=== PATIENT | female | born 1990 | race Two or more races ===

== ENCOUNTER 2025-01-08 19:14 | Emergency (ER) | payer SELFPAY ==
[~2025-01-08] VITALS: Ht 177.8 cm; Wt 73.0 kg
--- NOTE | 2025-01-08 19:28 | ED.PDOC ---
Altered Mental Status HPI Comments 35 y.o female presents to the ED via EMS for an evaluation of a witness syncopal episode today. EMS reports patient was in the front passenger seat of a relative's car, became hot and relative drove home to take her inside. Patient then had a syncopal episode inside the house, relative assisted her down and called 911. Unknown how long patient lost consciousness for and patient reports unable to remember being assisted into the house. Patient states history of syncopal episodes many years ago during that self resolved. EMS reports on scene, patient was hyperventilating, checked BG and it read 65. Patient was given D10 and repeat BG read 200. Patient denies any nausea, vomiting, diarrhea, fever, chills, chest pain or SOB. Time Seen by MD: 19:12 Reviewed Notes: Nurses Notes, Cheesemaker Helper Notes, Medications, Allergies Information Source: Patient, Relative, Emergency Med Personnel Mode of Arrival: EMS Severity: Moderate Timing: Hours Duration: Since onset Prehospital treatment: Accucheck (65), Treatment (D10 ) Quality: Decreased Alertness Associated Signs and Symptoms: Other Past Medical History PAST MEDICAL HISTORY: Denies Surgical History (Other): breast augmentation TOUR AGENT History: No Pertinent TOUR AGENT History Family History Family History: Reviewed,noncontributory to illness Social History Smoker: Non-Smoker Alcohol: Occasionally Drugs: Denies Drug Use Lives In: Home Constitutional: denies: chills, diaphoresis, fatigue, fever, malaise, sweats, weakness, others EENTM: denies: blurred vision, double vision, ear bleeding, ear discharge, ear drainage, ear pain, ear ringing, eye pain, eye redness, hearing loss, mouth pain, mouth swelling, nasal discharge, nose bleeding, nose congestion, nose pain, photophobia, tearing, throat pain, throat swelling, voice changes, others Respiratory: denies: cough, hemoptysis, orthopnea, SOB at rest, shortness of breath, SOB with excertion, stridor, wheezing, others Cardiovascular: reports: syncope; denies: chest pain, dizzy spells, diaphoresis, Dyspnea on exertion, edema, irregular heart beat, left arm pain, lightheadedness, palpitations, PND, others Gastrointestinal: denies: abdomen distended, abdominal pain, blood streaked bowels, constipated, diarrhea, dysphagia, difficulty swallowing, hematemesis, melena, nausea, poor appetite, poor fluid intake, rectal bleeding, rectal pain, vomiting, others Genitourinary: denies: abnormal vagina bleeding, burning, dyspareunia, dysuria, flank pain, frequency, hematuria, incontinence, pain, , vagina discharge, urgency, others Neurological: denies: dizziness, fainting, headache, left sided numbness, left sided weakness, numbness, paresthesia, pre-existing deficit, right sided numbness, right sided weakness, seizure, speech problems, tingling, tremors, weakness, others Musculoskeletal: denies: back pain, gout, joint pain, joint swelling, muscle pain, muscle stiffness, neck pain, others Integumetry: denies: bruises, change in color, change in hair/nails, dryness, laceration, lesions, lumps, rash, wounds, others Allergic/Immunocompromised: denies: Difficulty Healing, Frequent Infections, Hives, Itching, others Hematologic/Lymphatic: denies: anemia, blood clots, easy bleeding, easy bruising, swollen glands, others Endocrine: denies: excessive hunger, excessive sweating, excessive thirst, excessive urination, flushing, intolerance to cold, intolerance to heat, unexplained weight gain, unexplained weight loss, others Psychiatric: denies: anxiety, bipolar disorder, depression, hopeless, panic disorder, schizophrenia, sleepless, suicidal, others All Other Systems: Reviewed and Negative Physical Exam General Appearance: No Apparent Distress HEENT: Normal ENT Inspection, Pharynx Normal, TMs Normal Neck: Full Range of Motion, Non-Tender, Normal, Normal Inspection Respiratory: Chest Non-Tender, Lungs Clear, No Accessory Muscle Use, No Respiratory Distress, Normal Breath Sounds Cardiovascular: No Edema, No JVD, No Murmur, No Gallop, Normal Peripheral Pulses, Regular Rate/Rhythm Breast Exam: Deferred Gastrointestinal: No Organomegaly, Non Tender, No Pulsatile Mass, Normal Bowel Sounds, Soft Genitalia: Deferred Pelvic: Deferred Rectal: Deferred Extremities: No calf tenderness, Normal capillary refill, Normal inspection, Normal range of motion, Non-tender, No pedal edema Musculoskeletal : Apperance: Normal Neurologic: Alert, 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 Was a procedure done?: No Differential Diagnosis (ALOC) Differential Diagnosis: Dehydration, Hypoglycemia, Hypoxemia, Heart Failure, Renal Failure X-Ray, Labs, Meds, VS Vital Signs Date Time Temp Pulse Resp B/P (MAP) Pulse Ox O2 Delivery O2 Flow Rate FiO2 01/08/25 19:30 77 Lab Test 01/08/25 19:30 Range/Units White Blood Count Pending Red Blood Count Pending Hemoglobin Pending Hematocrit Pending Mean Corpuscular Volume Pending Mean Corpuscular Hemoglobin Pending Mean Corpuscular Hemoglobin Concent Pending Red Cell Distribution Width Pending Platelet Count Pending Mean Platelet Volume Pending Neutrophils (%) (Auto) Pending Lymphocytes (%) (Auto) Pending Monocytes (%) (Auto) Pending Basophils (%) (Auto) Pending Neutrophils # (Auto) Pending Lymphocytes # (Auto) Pending Monocytes # (Auto) Pending Sodium Level Pending Potassium Level Pending Chloride Level Pending Carbon Dioxide Level Pending Anion Gap Pending Blood Urea Nitrogen Pending Creatinine Pending Glomerular Filtration Rate Calc Pending BUN/Creatinine Ratio Pending Serum Glucose Pending Calcium Level Pending Troponin I High Sensitivity Pending We ordered blood work as well as imaging studies but the patient has now signed out AMA The patient understands the ramifications of leaving AMA. We did explain to them that they could return to the emergency department's the condition worsens Upon leaving, the patient has no chest pain or shortness for breath Images Reviewed?: Images reviewed and evaluated by me Time of 1ST Reevaluation: 19:22 Reevaluation 1ST: Unchanged Patient Education/Counseling: Diagnosis, Treatment, Prognosis Family Education/Counseling: Diagnosis, Treatment, Prognosis SEPSIS Sepsis Screen Physician Orders Troponin-I Hs (01/08/25 19:22) Complete Blood Count (01/08/25 19:22) Urinalysis (01/08/25 19:22) Head Without Contrast (01/08/25 19:22) Drug Screen (01/08/25 19:22) Cardiology Clinical Consultant (01/08/25 19:22) Pulse Oximetry (01/08/25 19:22) Blood Pressure (01/08/25 19:22) [place] Iv (01/08/25 19:22) Electrocardigram (01/08/25 19:22) Basic Metabolic Panel (01/08/25 19:22) Test, Urine (01/08/25 19:22) Vital Signs Date Time Temp Pulse Resp B/P (MAP) Pulse Ox O2 Delivery O2 Flow Rate FiO2 01/08/25 19:30 77 Laboratory Tests Test 01/08/25 19:30 White Blood Count Pending Departure 1 Departure Time of Disposition: 19:40 Impression: Primary Impression: Episode of syncope Qualified Codes: R55 - Syncope and collapse Disposition: LEFT AGAINST MEDICAL ADVICE Condition: Fair Critical Care Note Critical Care Time?: No Stability Stability form required: No Heart Score Heart Score: Heart Score Response (Comments) Value History N/A 0 EKG N/A 0 Age N/A 0 Risk Factors N/A 0 Troponin N/A 0 Total 0 I personally scribed for CODEY DEY MD ([email or web address]) on 01/08/25 at 19:28. Electronically submitted by Tosha Martinez ([facility] I personally scribed for CODEY DEY MD ([email or web address]) on 01/08/25 at 19:30. Electronically submitted by Tosha Martinez ([facility] CODEY DEY MD Jan 08, 2025 19:28
[2025-01-08 19:41] LABS: Hematocrit 39.5 % (36.0-46.0); Hemoglobin 13.0 g/dL (12.2-16.2); Mean Corpuscular Hemoglobin 29.2 pg (28.0-32.0); Mean Corpuscular Volume 89.1 fL (80.0-100.0); Nucleated Red Blood Cells % 0.1 %
[2025-01-08 19:55] LABS: Potassium 3.6 mmol/L (3.5-5.1); Sodium 142 mmol/L (136-145)
[2025-01-08 19:56] LABS: Anion Gap 7 (5-15); Carbon Dioxide 25 mmol/L (20-31)
[2025-01-08 19:57] LABS: Calcium 9.2 mg/dL (8.7-10.4); Chloride 110 mmol/L (98-107)
[2025-01-08 20:01] LABS: Glucose 85 mg/dL (74-106)
[2025-01-08 20:02] LABS: BUN/Creatinine Ratio 16.4 (10.0-20.0); Blood Urea Nitrogen 12 mg/dL (9-23)
[2025-01-08 20:13] VITALS: BP 106/74; PULSE 77; RESP 16; TEMP 98; O2SAT 98
--- NOTE | 2025-01-09 13:03 | ECG ---
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
== END 2025-01-08 19:30 | disposition left against medical advice (07) ==
LOC: EDBD 19:14 → ER 19:14
DX: R55 Syncope and collapse (principal); Z98.890 Other specified postprocedural states
CPT/HCPCS: 36415; 80048; 84484; 85025; 93005